=== PATIENT | male | born 1965 | race Asian ===

== ENCOUNTER 2016-10-25 08:22 | Outpatient (CLI) | payer BC ==
[2016-10-25] MEDS ORDERED: BARIUM SULFATE 135 ML SUSP.RECON (E-Z-HD) PO ONE ×2 (08:47→09:08)
== END 2016-10-25 17:56 | disposition home or self-care (01) ==
LOC: SRD 08:22
PROVIDERS: ATTEND Otolaryngology Plastic Surgery within the Head & Neck
DX: K21.9 Gastro-esophageal reflux disease without esophagitis (principal)
CPT/HCPCS: 74220-TC